=== PATIENT | female | born 1980 | race Caucasian/White ===

== ENCOUNTER 2017-01-04 17:54 | Emergency (ER) | payer MEDICAID ==
[~2017-01-04] VITALS: Ht 157.5 cm; Wt 93.4 kg
[2017-01-04 18:02] VITALS: BP 127/81
== END 2017-01-04 19:28 | disposition home or self-care (01) ==
LOC: ED 17:54
DX: J02.0 Streptococcal pharyngitis (principal); B95.5 Unspecified streptococcus as the cause of diseases classified elsewhere; Z86.79 Personal history of other diseases of the circulatory system
CPT/HCPCS: J0561; J1100

== ENCOUNTER 2017-04-23 12:05 | Emergency (ER) | payer MEDICAID ==
[~2017-04-23] VITALS: Ht 157.5 cm; Wt 85.3 kg
[2017-04-23 14:49] VITALS: BP 104/61
== END 2017-04-23 14:49 | disposition home or self-care (01) ==
LOC: ED 12:05
DX: S93.602A Unspecified sprain of left foot, initial encounter (principal); W11.XXXA Fall on and from ladder, initial encounter; Y93.89 Activity, other specified; Y99.8 Other external cause status; Y92.89 Other specified places as the place of occurrence of the external cause

== ENCOUNTER 2017-08-07 23:39 | Emergency (ER) | payer MEDICAID ==
[2017-08-08 03:01] VITALS: BP 110/68
== END 2017-08-08 03:01 | disposition home or self-care (01) ==
LOC: ED 23:39
DX: N12 Tubulo-interstitial nephritis, not specified as acute or chronic (principal); N39.0 Urinary tract infection, site not specified
CPT/HCPCS: J1885

== ENCOUNTER 2019-06-27 13:49 | Emergency (ER) | payer MEDICAID ==
[~2019-06-27] VITALS: Ht 160 cm; Wt 91.2 kg
[2019-06-27 13:53] VITALS: Ht 160 cm; Wt 91.2 kg
[2019-06-27 14:36] LABS: CALCIUM 8.7 mg/dL (8.5-10.1); CARBON DIOXIDE 24.5 mmol/L (21-32); CHLORIDE SERUM 102 mmol/L (98-107); CREATININE SERUM 0.8 mg/dL (0.6-1.0); GFR1 > 60 mL/min; GLUCOSE SERUM 97 mg/dL (74-106); POTASSIUM SERUM 3.8 mmol/L (3.5-5.1); SODIUM SERUM 138 mmol/L (136-145)
[2019-06-27 14:37] LABS: BASOPHIL % 0.6 % (0-2); PLATELET COUNT 399 x10^3mcL (130-400)
[2019-06-27 14:41] LABS: ALBUMIN 3.5 g/dL (3.4-5.0); ALKALINE PHOSPHATASE 107 U/L (46-116); ALT/SGPT 56 U/L (14-59); AST/SGOT 35 U/L (15-37); BILIRUBIN TOTAL 0.2 mg/dL (0.20-1.00); TOTAL PROTEIN, SERUM 7.8 g/dL (6.4-8.2)
[2019-06-27 16:00] VITALS: BP 130/68
== END 2019-06-27 16:00 | disposition home or self-care (01) ==
LOC: ED 13:49
PROVIDERS: Emergency Medicine
DX: T36.1X5A Adverse effect of cephalosporins and other beta-lactam antibiotics, initial encounter (principal); T45.0X5A Adverse effect of antiallergic and antiemetic drugs, initial encounter; T36.0X5A Adverse effect of penicillins, initial encounter; N39.0 Urinary tract infection, site not specified; F32.9 Major depressive disorder, single episode, unspecified; R22.32 Localized swelling, mass and lump, left upper limb; Z98.890 Other specified postprocedural states; Z87.442 Personal history of urinary calculi; Y92.89 Other specified places as the place of occurrence of the external cause
CPT/HCPCS: J0696; J1200; J2405; J3490; J7030; J7060